=== PATIENT | male | born 1940 ===

== ENCOUNTER 2021-03-23 20:20 | Inpatient (IN) | payer MEDICARE, MEDICAID ==
[2021-03-23 22:29] LABS: Hemoglobin 13.9 g/dL (14.0-18.0); Mean Corpuscular HGB CONC 32.1 g/dL (32.0-36.0); Mean Corpuscular Hemoglobin 28.6 pg (27.0-31.0); Mean Platelet Volume 7.2 fL (7.4-10.4); Platelet Count 433 thou/uL (130-400); RBC Distribution Width 12.5 % (11.5-14.5); Red Blood Cell (RBC) Count 4.86 mill/uL (4.70-6.10)
[2021-03-23 22:50] LABS: ALT (SGPT) 29 U/L (8-55); AST (SGOT) 55 U/L (5-34); Albumin 3.3 g/dL (3.4-4.8); Alkaline Phosphatase 97 U/L (40-110); Anion Gap 15 mmol/L (10-20); BUN (Urea Nitrogen) 28 mg/dL (8.4-25.7); Bilirubin, Total 0.9 mg/dL (0.2-1.2); CK (CPK) 113 U/L (30-200); Calc. Creatinine Clearance 0 mL/min (70-130); Calcium 8.8 mg/dL (7.8-10.44); Carbon Dioxide 28 mmol/L (23-31); Chloride 98 mmol/L (98-107); Globulin 3.2 g/dL (2.4-3.5); Glucose 124 mg/dL (83-110); Lipase 30 U/L (8-78); Potassium 4.4 mmol/L (3.5-5.1); Protein, Total 6.5 g/dL (5.8-8.1); Sodium 137 mmol/L (136-145)
[2021-03-23 22:54] LABS: SARS-CoV-2 NAA Rapid Test DETECTED (NotDetected)
[2021-03-23] MEDS ORDERED: Dexamethasone 10 MG/ML VIAL ONE (23:03)
[2021-03-23 23:05] LABS: Band 18 % (5-11); Lymphocytes 3 % (21-51); MDiff Complete? YES; Monocytes 6 % (0-10); Neutrophil 73 % (42-75)
[2021-03-23] MEDS ORDERED: Acetaminophen 500 MG TAB ONE (23:24)
[2021-03-24] MEDS ORDERED: Ondansetron PF 4 MG/2 ML Vial IVP PRN (00:08)
[2021-03-24] MEDS ORDERED: Loperamide HCl 2 MG CAP PO PRN (00:08)
[2021-03-24] MEDS ORDERED: Acetaminophen 325 MG TAB PO PRN (00:08)
[2021-03-24] MEDS ORDERED: Bisacodyl 10 MG SUPP PR PRN (00:08)
[2021-03-24] MEDS ORDERED: HYDROcodone/Acetaminophen 7.5/325 mg Tablet PO PRN (00:08)
[2021-03-24] MEDS ORDERED: Ivermectin 3 MG TAB PO SCH ×2 (00:15→06:00)
[2021-03-24] MEDS: Dextrose 5 % And 0.9 % NaCl 1,000 ML IV SCH ×3 (03:48→21:31)
[2021-03-24 05:23] LABS: Hemoglobin 12.9 g/dL (14.0-18.0); Mean Corpuscular HGB CONC 31.5 g/dL (32.0-36.0); Mean Corpuscular Hemoglobin 28.3 pg (27.0-31.0); Mean Corpuscular Volume 89.7 fL (78.0-98.0); Mean Platelet Volume 7.1 fL (7.4-10.4); Platelet Count 440 thou/uL (130-400); RBC Distribution Width 12.6 % (11.5-14.5); Red Blood Cell (RBC) Count 4.57 mill/uL (4.70-6.10)
[2021-03-24 05:42] LABS: Band 18 % (5-11); Lymphocytes 2 % (21-51); MDiff Complete? YES; Monocytes 1 % (0-10); Neutrophil 79 % (42-75)
[2021-03-24 05:58] LABS: ALT (SGPT) 24 U/L (8-55); AST (SGOT) 40 U/L (5-34); Albumin 2.9 g/dL (3.4-4.8); Alkaline Phosphatase 89 U/L (40-110); Anion Gap 12 mmol/L (10-20); BUN (Urea Nitrogen) 30 mg/dL (8.4-25.7); Bilirubin, Total 0.9 mg/dL (0.2-1.2); Calc. Creatinine Clearance 36 mL/min (70-130); Calcium 8.9 mg/dL (7.8-10.44); Carbon Dioxide 26 mmol/L (23-31); Chloride 101 mmol/L (98-107); Globulin 3.9 g/dL (2.4-3.5); Glucose 169 mg/dL (83-110); Potassium 4.2 mmol/L (3.5-5.1); Protein, Total 6.8 g/dL (5.8-8.1); Sodium 135 mmol/L (136-145)
[2021-03-24 06:01] LABS: Troponin I Less than 0.010 ng/mL (< 0.028)
[2021-03-24] MEDS: Albuterol 200 PUFF (6.7GM INHALER) INH SCH ×4 (06:12→20:50)
[2021-03-24] MEDS ORDERED: Dexamethasone 10 MG in Sodium Chloride 0.9% 50 ML IVPB SCH (09:00)
[2021-03-24] MEDS: Famotidine 20 MG TAB PO SCH (10:26)
[2021-03-24] MEDS: Enoxaparin Sodium 40 MG/0.4 ML SYRINGE SC SCH (10:27)
[2021-03-24] MEDS: guaiFENesin ER 600 MG TAB PO SCH ×2 (10:27→20:51)
[2021-03-24] MEDS: Zinc Sulfate 220 MG CAP PO SCH (10:27)
[2021-03-24] MEDS: Dexamethasone 4 mg/ml Vial SLOW IVP SCH (10:48)
[2021-03-24] MEDS ORDERED: REMDESIVIR 200 MG in Sodium Chloride 0.9% 250 ML 210 ML IV SCH (11:30)
[2021-03-24 15:03] VITALS: BMI 15.3
[2021-03-25] MEDS: Albuterol 200 PUFF (6.7GM INHALER) INH SCH ×4 (02:10→14:22)
[2021-03-25] MEDS: Dextrose 5 % And 0.9 % NaCl 1,000 ML IV SCH ×2 (05:11→14:21)
[2021-03-25] MEDS: Zinc Sulfate 220 MG CAP PO SCH (08:45)
[2021-03-25] MEDS: Dexamethasone 4 mg/ml Vial SLOW IVP SCH (08:46)
[2021-03-25] MEDS: Enoxaparin Sodium 40 MG/0.4 ML SYRINGE SC SCH (08:46)
[2021-03-25] MEDS: Famotidine 20 MG TAB PO SCH (08:47)
[2021-03-25] MEDS: guaiFENesin ER 600 MG TAB PO SCH ×2 (08:47→21:37)
[2021-03-25] MEDS ORDERED: Insulin Regular 300 UNITS/3 ML VIAL ONE (09:03)
[2021-03-25] MEDS: REMDESIVIR 100 MG in Sodium Chloride 0.9% 250 ML 230 ML IV SCH (09:29)
[2021-03-26] MEDS: REMDESIVIR 100 MG in Sodium Chloride 0.9% 250 ML 230 ML IV SCH (08:54)
[2021-03-26] MEDS: guaiFENesin ER 600 MG TAB PO SCH ×2 (08:55→19:58)
[2021-03-26] MEDS: Famotidine 20 MG TAB PO SCH (08:55)
[2021-03-26] MEDS: Zinc Sulfate 220 MG CAP PO SCH (08:56)
[2021-03-26] MEDS: Dexamethasone 4 mg/ml Vial SLOW IVP SCH (08:56)
[2021-03-26] MEDS: Enoxaparin Sodium 40 MG/0.4 ML SYRINGE SC SCH (08:56)
[2021-03-26] MEDS: Albuterol 200 PUFF (6.7GM INHALER) INH SCH ×2 (19:57→20:15)
[2021-03-26] MEDS: Dextrose 5 % And 0.9 % NaCl 1,000 ML IV SCH (23:48)
[2021-03-27] MEDS: Albuterol 200 PUFF (6.7GM INHALER) INH SCH ×4 (03:43→21:29)
[2021-03-27] MEDS: guaiFENesin ER 600 MG TAB PO SCH ×2 (08:03→21:28)
[2021-03-27] MEDS: Dexamethasone 4 mg/ml Vial SLOW IVP SCH (08:03)
[2021-03-27] MEDS: Zinc Sulfate 220 MG CAP PO SCH (08:03)
[2021-03-27] MEDS: Famotidine 20 MG TAB PO SCH (08:03)
[2021-03-27] MEDS: REMDESIVIR 100 MG in Sodium Chloride 0.9% 250 ML 230 ML IV SCH (08:16)
[2021-03-27] MEDS: Dextrose 5 % And 0.9 % NaCl 1,000 ML IV SCH ×2 (08:17→18:06)
[2021-03-27] MEDS ORDERED: Amlodipine 5 MG TAB PO SCH (09:15)
[2021-03-27] MEDS: Enoxaparin Sodium 40 MG/0.4 ML SYRINGE SC SCH (10:14)
[2021-03-28] MEDS: Albuterol 200 PUFF (6.7GM INHALER) INH SCH ×7 (03:54→23:44)
[2021-03-28] MEDS: Dextrose 5 % And 0.9 % NaCl 1,000 ML IV SCH ×5 (03:58→20:41)
[2021-03-28] MEDS: REMDESIVIR 100 MG in Sodium Chloride 0.9% 250 ML 230 ML IV SCH (08:33)
[2021-03-28] MEDS: guaiFENesin ER 600 MG TAB PO SCH ×2 (08:34→20:39)
[2021-03-28] MEDS: Amlodipine 5 MG TAB PO SCH (08:34)
[2021-03-28] MEDS: Enoxaparin Sodium 40 MG/0.4 ML SYRINGE SC SCH (08:34)
[2021-03-28] MEDS: Famotidine 20 MG TAB PO SCH (08:35)
[2021-03-28] MEDS: Zinc Sulfate 220 MG CAP PO SCH (08:35)
[2021-03-28] MEDS: Dexamethasone 4 mg/ml Vial SLOW IVP SCH (08:35)
[2021-03-29] MEDS: Albuterol 200 PUFF (6.7GM INHALER) INH SCH ×2 (02:25→06:52)
[2021-03-29] MEDS: guaiFENesin ER 600 MG TAB PO SCH (10:30)
[2021-03-29] MEDS: Famotidine 20 MG TAB PO SCH (10:30)
[2021-03-29] MEDS: Dexamethasone 4 mg/ml Vial SLOW IVP SCH ×2 (10:31→10:40)
[2021-03-29] MEDS: Amlodipine 5 MG TAB PO SCH (10:31)
[2021-03-29] MEDS: Zinc Sulfate 220 MG CAP PO SCH (10:40)
[2021-03-29] MEDS: Dextrose 5 % And 0.9 % NaCl 1,000 ML IV SCH (10:40)
[2021-03-29] MEDS: Enoxaparin Sodium 40 MG/0.4 ML SYRINGE SC SCH (10:40)
[2021-03-29] MEDS ORDERED: Dexamethasone 4 MG TAB PO SCH (12:45)
[2021-03-29 16:29] VITALS: BP 149/75; TEMP 97.9
== END 2021-03-29 17:56 | disposition home or self-care (01) | DRG 177 ==
LOC: ERS 20:20 → 2SW 03-24 00:08
PROVIDERS: ADMIT Internal Medicine; ATTEND Internal Medicine
PROC: XW033E5 Introduction of Remdesivir Anti-infective into Peripheral Vein, Percutaneous Approach, New Technology Group 5 (ICD-10-PCS; principal; 2021-03-24)
PROC: 8E0ZXY6 Isolation (ICD-10-PCS; 2021-03-24)
DX: U07.1 COVID-19 (principal); J12.82 Pneumonia due to coronavirus disease 2019; J96.01 Acute respiratory failure with hypoxia; I10 Essential (primary) hypertension; R53.1 Weakness; Z87.891 Personal history of nicotine dependence; Z89.111 Acquired absence of right hand
CPT/HCPCS: 36415; 36416; 70450; 71045; 80053; 82550; 82728; 83690; 83735; 84443; 84484; 85007; 85025; 85027; 86140; 90471; 90732; 93005; 96374; G0009; J1100; J1650; J1815; J7042; J7050; U0002

== ENCOUNTER 2021-08-28 17:52 | Emergency (ER) | payer OTHER, MEDICAID ==
[2021-08-28 19:29] LABS: #Basophils 0.1 thou/uL (0.0-0.2); #Eosinphils 0.1 thou/uL (0.0-0.7); #Lymphocytes 1.1 thou/uL (1.20-3.40); #Monocytes 0.4 thou/uL (0.11-0.59); #Neutrophils 5.3 thou/uL (1.40-6.50); %Lymphocytes 15.7 % (21.0-51.0); %Monocytes 5.8 % (0.0-10.0); %Neutrophils 76.5 % (42.0-75.0); Hemoglobin 13.3 g/dL (14.0-18.0); Mean Corpuscular HGB CONC 32.7 g/dL (32.0-36.0); Mean Corpuscular Hemoglobin 29.1 pg (27.0-31.0); Mean Platelet Volume 8.3 fL (7.4-10.4); Platelet Count 227 thou/uL (130-400); Red Blood Cell (RBC) Count 4.57 mill/uL (4.70-6.10); White Blood Cell (WBC) Count 6.9 thou/uL (4.8-10.8)
[2021-08-28 19:48] LABS: ALT (SGPT) 14 U/L (8-55); AST (SGOT) 21 U/L (5-34); Albumin 3.6 g/dL (3.4-4.8); Alkaline Phosphatase 60 U/L (40-110); Anion Gap 13 mmol/L (10-20); BUN (Urea Nitrogen) 14 mg/dL (8.4-25.7); Bilirubin, Total 0.3 mg/dL (0.2-1.2); Calc. Creatinine Clearance 0 mL/min (70-130); Calcium 8.9 mg/dL (7.8-10.44); Carbon Dioxide 24 mmol/L (23-31); Chloride 106 mmol/L (98-107); Glucose 93 mg/dL (83-110); Lipase 30 U/L (8-78); Potassium 4.5 mmol/L (3.5-5.1); Protein, Total 6.6 g/dL (5.8-8.1); Sodium 138 mmol/L (136-145)
[2021-08-28 19:50] LABS: Acetaminophen Less than 6.0 mcg/mL (10.0-30.0); Alcohol Less than 10 mg/dL (Less than 10); Salicylate Less than 8.0 mg/dL (15.0-30.0)
[2021-08-28] MEDS ORDERED: HYDROcodone/Acetaminophen 5/325 mg Tablet ONE (21:15)
== END 2021-08-28 22:00 | disposition home or self-care (01) ==
LOC: ERS 17:52
DX: R11.2 Nausea with vomiting, unspecified (principal); F17.200 Nicotine dependence, unspecified, uncomplicated
CPT/HCPCS: 36415; 71045; 80053; 80307; 83605; 83690; 84484; 85025; 93005